=== PATIENT | male | born 1945 | race Caucasian/White ===

== ENCOUNTER 2017-01-08 07:02 | Emergency (ER) | payer OTHER ==
[~2017-01-08] VITALS: Ht 170.2 cm; Wt 74.4 kg
[2017-01-08 07:13] VITALS: BP 173/93
--- NOTE | 2017-01-08 07:28 | ED DYSPNEA/ASTHMA COMPLAINT ---
History of Present Illness General Chief Complaint: Wheezing/Asthma Stated Complaint: WHEEZING, COUGH, HX OF ASTHMA Source: patient Exam Limitations: no limitations Vital Signs & Intake/Output Vital Signs & Intake/Output Vital Signs Date Time Temp Pulse Resp B/P Pulse O2 O2 Flow FiO2 Ox Delivery Rate 01/08 0739 98 01/08 0730 Room Air Room Air 01/08 713 97.7 70 20 173/93 95 Room Air Allergies Coded Allergies: Penicillins (Intermediate, SWELLING 01/08/17) Sulfa (Sulfonamide Antibiotics) (UNKNOWN 01/08/17) Reconcile Medications Amlodipine Besylate 5 MG TABLET 1 TAB PO DAILY HEART (Reported) Ipratropium/Albuterol Sulfate (Combivent Respimat Inhal [place]) 20 MCG-100 MCG/ ACTUATION MIST.INHAL 2-4 INH INH Q6 PRN trouble breathing Levothyroxine Sodium (Levoxyl) 75 MCG TABLET 1 TAB PO DAILY AC THYROID ( Reported) Methylprednisolone. (Medrol) 4 MG TAB.DS.PK 1 DP PO AD PAIN 6 on day 1 then reduce by one tablet daily until gone Triage Note: C/O SOB, WHEEZING, COUGH X 1 WEEK, WORSE THE PAST 2 DAYS. WAS PUT ON PREDNISONE BY PMD FOR 5 DAYS, STATES WORSE SINCE THEN, INHALER NOT HELPING (PRO AIR). Triage Nurses Notes Reviewed? yes HPI: Patient presents for evaluation of an asthma exacerbation that began about 2 weeks ago. Gradual in onset. He saw his primary care physician last week and treated with a 5 day course of prednisone. He states that his symptoms have gotten worse particularly over the last 2 nights. He has been using his metered dose inhaler (Provera) with transient relief it lasts about an hour. He denies any associated fever or cold symptoms. Denies any chest pain or leg swelling. Symptoms worsen with exertion. No shortness of breath has been more or less constant but fluctuates in intensity. Past History Travel History Traveled to [place] past 21 day No Medical History Any Pertinent Medical History? see below for history Cardiovascular: hypertension Respiratory: asthma Endocrine: hypothyroidism Surgical History Surgical History: non-contributory Psychosocial History What is your primary language Greek Tobacco Use: Never used ETOH Use: denies use Family History Hx Contributory? No Review of Systems Review of Systems Constitutional: Reports: no symptoms. EENTM: Reports: no symptoms. Respiratory: Reports: see HPI. Cardiovascular: Reports: no symptoms. GI: Reports: no symptoms. Genitourinary: Reports: no symptoms. Musculoskeletal: Reports: no symptoms. Skin: Reports: no symptoms. Neurological/Psychological: Reports: no symptoms. Hematologic/Endocrine: Reports: no symptoms. Immunologic/Allergic: Reports: no symptoms. All Other Systems: Reviewed and Negative Physical Exam Physical Exam Respiratory: SEE BELOW Comments: Gen.: Well-nourished, well-developed, no acute respiratory distress. Head: Normocephalic, atraumatic. Eyes: Normal inspection bilaterally Ears: Normal inspection bilaterally Nose: Normal inspection Throat/mouth : Moist mucosa Neck: Supple, full range of motion, no goiter Heart: Regular rate and rhythm, no murmurs rubs or gallops Lungs: Decreased breath sounds bilaterally with harsh end expiratory breath sounds and no outright wheezing. Chest: Nontender Back: Normal range of motion Abdomen: Soft, nontender, nondistended, normal bowel sounds Extremities: Normal range of motion grossly, equal radial pulses, no cyanosis clubbing or edema Neurologic: Cranial nerves grossly intact, speech is clear Skin: warm and dry Psychiatric: Calm, cooperative, no apparent delusions or hallucinations Core Measures ACS in differential dx? No Severe Sepsis Present: No Septic Shock Present: No Progress Differential Diagnosis: vIRAL uri, PNEUMONIA, ASTHMA EXACERBATION Plan of Care: Current Medications Sig/Brinda Start time Last Medication Dose Stop Time Status Admin Albuterol Sulfate 3 ML ONCE ONE 01/08 730 UNVr (Proventil) 01/08 731 Ipratropium [place] 2.5 ML ONCE ONE 01/08 730 UNVr (Atrovent) 01/08 731 Methylprednisolone 125 MG ONCE ONE 01/08 730 UNVr (Solu Medrol) 01/08 731 Initial ED EKG: none Comments: 01/08/2017 8:19:52 AM Charles is feeling better and has declined any additional treatment here in the emergency department. His air entry has improved substantially although he still has mild end expiratory wheezing. Feel this reflects an improvement in his air entry. He feels good enough to go home and declined a work note. Departure Departure Disposition: HOME OR SELF CARE Condition: Stable Clinical Impression Primary Impression: Asthma exacerbation Referrals: DEVONTE BENEDICT (PCP/Family) Additional Instructions: Combivent inhaler 4 times a day, use your pro-air inhaler in between if necessary. Medrol Dosepak as prescribed. Avoid exertion. Follow-up with your primary care physician later this week if any lingering concerns. Otherwise return to the emergency department if any sudden worsening. Departure Forms: Customer Survey General Discharge Information Prescriptions: Current Visit Scripts Ipratropium/Albuterol Sulfate (Combivent Respimat Inhal [place]) 2-4 INH INH Q6 PRN trouble breathing #1 INHAL Methylprednisolone. (Medrol) 1 DP PO AD #1 DP 6 on day 1 then reduce by one tablet daily until gone Critical Care Note Critical Care Note Critical Care Time: non-applicable
[2017-01-08] MEDS ORDERED: LEVOXYL75 MCG PO (08:06)
[2017-01-08] MEDS ORDERED: AMLODIPINE BESYL5 M1 PO (08:06)
[2017-01-08] MEDS ORDERED: COMBIVENT RESPIM4 GM INH (08:22)
[2017-01-08] MEDS ORDERED: MEDROL4 M2 PO (08:22)
== END 2017-01-08 08:28 ==
LOC: ERH 07:02
DX: J45.901 Unspecified asthma with (acute) exacerbation (principal)
CPT/HCPCS: 1263; 96372; J2930

== ENCOUNTER 2017-03-31 12:45 | Emergency (ER) | payer OTHER ==
[~2017-03-31 12:45] MED LIST: AMLODIPINE BESYL5 M1 PO; COMBIVENT RESPIM4 GM INH; LEVOXYL75 MCG PO; MEDROL4 M2 PO
[2017-03-31 12:52] VITALS: BP 115/73
--- NOTE | 2017-03-31 13:12 | ED DYSPNEA/ASTHMA COMPLAINT ---
History of Present Illness General Chief Complaint: Wheezing/Asthma Stated Complaint: ASTHMA, WHEEZING Source: patient, family, old records Exam Limitations: no limitations Vital Signs & Intake/Output Vital Signs & Intake/Output Vital Signs Date Time Temp Pulse Resp B/P B/P Pulse O2 O2 Flow FiO2 Mean Ox Delivery Rate 03/31 1353 90 03/31 1329 93 Room Air 03/31 1252 97.6 76 18 115/73 93 Room Air Allergies Coded Allergies: Penicillins (Intermediate, SWELLING 01/08/17) Sulfa (Sulfonamide Antibiotics) (UNKNOWN 01/08/17) Reconcile Medications Amlodipine Besylate 5 MG TABLET 1 TAB PO DAILY HEART (Reported) Ipratropium/Albuterol Sulfate (Combivent Respimat Inhal [place]) 20 MCG-100 MCG/ ACTUATION MIST.INHAL 2-4 INH INH Q6 PRN trouble breathing Levothyroxine Sodium (Levoxyl) 75 MCG TABLET 1 TAB PO DAILY AC THYROID ( Reported) Methylprednisolone. (Medrol) 4 MG TAB.DS.PK 1 DP PO AD asthma 6 on day 1 then reduce by one tablet daily until gone Triage Note: PT TO ED WITH ASTHMA ACTING UP. STATES HE WAS GARDENING ON SATURDAY AND STARTED TO FEEL IT THEN. STATES WENT TO [place] YESTERDAY AND STARTED TO HAVE A PERSISTENT COUGH. STATES THAT HIS ASTHMA NOT BOTHERED HIM IN A LONG TIME AND HE RARELY USES HIS ALBUTEROL INHALER. REPORTS THAT TODAY HE FEELS WORSE AND HAS BEEN USING HIS INHALER ABOUT ONCE AN HOUR ALL DAY TODAY. Triage Nurses Notes Reviewed? yes Onset: Gradual Duration: day(s): (2), constant Timing: recent history Severity: mild, moderate Activities at Onset: activity Prior Episodes/Possible Cause: occasional episodes Modifying Factors: Improves With: rest. Worsens With: movement, other (albuterol). Associated Symptoms: cough, wheezing HPI: 71-year-old male with history of asthma presents to ER for evaluation for exacerbation of his asthma for the past 3 days. He's been using his albuterol inhaler with improvement. He reports a nonproductive cough no fever no chills. No chest pain. He denies shortness of breath at this time reports a wheezing intermittently worse with exertion. No leg swelling abdominal pain no fever no chills does not smoke (JUAN A ROJAS,KAYLAN) Past History Travel History Traveled to [place] past 21 day No Medical History Any Pertinent Medical History? see below for history Cardiovascular: hypertension Respiratory: asthma Endocrine: hypothyroidism Surgical History Surgical History: non-contributory Psychosocial History What is your primary language Slovenian Tobacco Use: Never used Family History Hx Contributory? No (KAYLAN LIMON) Review of Systems Review of Systems Constitutional: Reports: see HPI. All Other Systems: Reviewed and Negative Comments Review of systems: See HPI, All other systems negative. Constitutional, no chills no fever, no malaise HEENT: No visual changes no sore throat no congestion Cardiovascular: No chest pain , no palpitation Skin: no rashes, no change in skin Respiratory: dyspnea cough no sputum GI: No nausea no vomiting, : No dysuria Muscle skeletal: No joint pain, no back pain, no neck pain, Neurologic: No numbness no headache Psych: No stress Heme/endocrine: No bruising Immunology: No lymphadenopathy (KAYLAN LIMON) Physical Exam Physical Exam General Appearance: well developed/nourished, alert, awake Respiratory: wheezing Comments: Well-developed well-nourished patient in no apparent distress. HEENT: Atraumatic, extraocular motion intact Neck: Supple, FROM Back: FROM Cardiovascular: Regular rate and rhythms no murmurs rubs or gallops, Respiratory: Chest nontender.There were no bony deformities, no asymmetry. No respiratory distress. Patient speaking in full complete sentences. exp wheezes b/l no rhonchi no rales Extremities: full range of motion Neuro: awake, alert, and oriented to person, place and time. There were no obvious focal neurologic abnormalities. Skin: Warm & dry;No appreciable rash on exposed skin Psych: Mood affect normal, normal memory normal judgment. Wheezing bilaterally no rhonchi no rales Core Measures ACS in differential dx? Yes Severe Sepsis Present: No Septic Shock Present: No (KAYLAN LIMON) Progress Differential Diagnosis: asthma, bronchitis, costochondritis, CHF, COPD, musculoskeletal pain, pericarditis, pulmonary embolism, pneumonia, pneumothorax, unstable angina Plan of Care: duoneb ordered, prednisone 60mg po. pt appears in nad at this time Repeat evaluation patient reports to feeling improved after breathing treatment will send him home with prednisone taper advise close follow-up with primary care physician, return anytime sooner with any concerns. Initial ED EKG: none (KAYLAN LIMON) Departure Departure Time of Disposition: 1407 Disposition: HOME OR SELF CARE Condition: Stable Clinical Impression Primary Impression: Asthma exacerbation Referrals: FAY BAUER,DEVONTE Porter (PCP/Family) Additional Instructions: Follow-up with your primary care physician this week. Medrol Dosepak as directed this prescription was sent to your pharmacy you've been given today's dose continue using your inhaler as directed return at anytime sooner if any concerns. Departure Forms: Customer Survey General Discharge Information Prescriptions: Current Visit Scripts Methylprednisolone. (Medrol) 1 DP PO AD #1 DP 6 on day 1 then reduce by one tablet daily until gone (KAYLAN LIMON) PA/COMPARISON SHOPPER Co-Sign Statement Statement: ED Attending supervision documentation- [] I saw and evaluated the patient. I have also reviewed all the pertinent lab results and diagnostic results. I agree with the findings and the plan of care as documented in the PA's/COMPARISON SHOPPER's documentation. [X] I have reviewed the ED Record and agree with the PA's/COMPARISON SHOPPER's documentation. [] Additions or exceptions (if any) to the PAs/COMPARISON SHOPPER's note and plan are summarized below: [] (KATE PHIPPS,ELAINE Li) Critical Care Note Critical Care Note Critical Care Time: non-applicable (KAYLAN LIMON)
[2017-03-31] MEDS ORDERED: MEDROL4 M2 PO (14:09)
== END 2017-03-31 14:27 ==
LOC: ERH 12:45
DX: J45.901 Unspecified asthma with (acute) exacerbation (principal)
CPT/HCPCS: 1263